=== PATIENT | female | born 1990 | race Caucasian/White ===

== ENCOUNTER 2022-11-21 13:26 | Emergency (ER) | payer OTHER ==
[~2022-11-21] VITALS: Ht 160 cm; Wt 79.4 kg
[~2022-11-21 13:26] MED LIST: AMOXICILLIN500 M2 PO; ZYRTEC10 MG PO
== END 2022-11-21 16:55 | disposition left against medical advice (07) ==
LOC: ED 13:26
DX: O26.891 Other specified pregnancy related conditions, first trimester (principal); R11.0 Nausea; R10.9 Unspecified abdominal pain; R42 Dizziness and giddiness; Z53.21 Procedure and treatment not carried out due to patient leaving prior to being seen by health care provider; Z3A.01 Less than 8 weeks gestation of pregnancy